=== PATIENT | male | born 2000 | race Two or more races ===

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

== ENCOUNTER 2022-04-21 13:43 | Emergency (ER) | payer MEDICAID ==
[~2022-04-21] VITALS: Ht 180.3 cm; Wt 68.0 kg
[2022-04-21] MEDS ORDERED: PANT40TA2 PO (14:37)
[2022-04-21 15:14] LABS: Basophils # (auto) 0.2 10 ^3/uL (0-0.2); Basophils % (auto) 2.7 % (0.0-2.0); Eosinophils # (auto) 0.2 10 ^3/uL (0-0.8); Eosinophils % (auto) 3.7 % (0.0-7.0); Hematocrit 43.7 % (41.0-53.0); Hemoglobin 15.1 g/dL (13.5-17.5); Lymphocytes % (auto) 15.7 % (10.0-50.0); Mean Corpuscular Hemoglobin 30.8 pg (28.0-32.0); Mean Corpuscular Hgb Conc. 34.6 g/dL (32.0-36.0); Mean Corpuscular Volume 88.9 fL (80.0-100.0); Monocytes # (auto) 0.8 10 ^3/uL (0-1.3); Monocytes % (auto) 11.3 % (0.0-12.0); Neutrophils # (auto) 4.4 10 ^3/uL (1.6-8.6); Neutrophils % (auto) 66.6 % (37.0-80.0); Nucleated Red Blood Cells % 0.2 %; Red Blood Cells 4.91 10^6/uL (4.5-5.90); Red Cell Distribution Width 12.8 % (11.8-14.3); White Blood Cell 6.7 10^3/uL (4.4-10.8)
[2022-04-21 15:35] LABS: Albumin 3.7 g/dL (3.4-5.0); Calcium 9.1 mg/dL (8.5-10.1)
[2022-04-21 15:40] LABS: Bilirubin, Total 0.3 mg/dL (0.2-1.0); Total Protein 7.5 g/dL (6.4-8.2)
[2022-04-21 17:24] VITALS: BP 120/85
== END 2022-04-21 17:29 | disposition home or self-care (01) ==
LOC: ER 13:43
DX: K29.70 Gastritis, unspecified, without bleeding (principal)
CPT/HCPCS: 36415; 74176; 80053; 83690; 85025